=== PATIENT | male | born 1970 | race African-American/Black ===

== ENCOUNTER 2019-05-11 07:30 | Emergency (ER) | payer MEDICAID, OTHER ==
[~2019-05-11] VITALS: Ht 167.6 cm; Wt 72.0 kg
[2019-05-11 07:40] VITALS: BP 125/65
[2019-05-11] MEDS ORDERED: IBUPROFEN 800MG TABLET PO ONE (08:30)
== END 2019-05-11 08:47 | disposition home or self-care (01) ==
LOC: ER 07:30
DX: M25.512 Pain in left shoulder (principal); M54.5 Low back pain; F17.200 Nicotine dependence, unspecified, uncomplicated
CPT/HCPCS: 99282; 99283